=== PATIENT | female | born 1980 | race Caucasian/White ===

== ENCOUNTER 2019-05-30 15:36 | Emergency (ER) | payer SELFPAY ==
[2019-05-30] MEDS ORDERED: diphenhydrAMINE 25 MG CAP ONE (15:59)
[2019-05-30] MEDS ORDERED: Dexamethasone 4 mg/ml Vial ONE ×2 (15:59→16:04)
== END 2019-05-30 16:10 | disposition home or self-care (01) ==
LOC: ERS 15:36
DX: L25.3 Unspecified contact dermatitis due to other chemical products (principal)
CPT/HCPCS: 99282; J1100; Q0163

== ENCOUNTER 2022-08-18 08:17 | Outpatient (CLI) | payer BC | END 2022-08-18 08:18 | disposition home or self-care (01) | LOC: BICMAMMO 08:17 | PROVIDERS: ATTEND Family Medicine | DX: Z12.31 Encounter for screening mammogram for malignant neoplasm of breast (principal); N64.4 Mastodynia; R92.1 Mammographic calcification found on diagnostic imaging of breast; R92.8 Other abnormal and inconclusive findings on diagnostic imaging of breast; Z98.890 Other specified postprocedural states | CPT/HCPCS: 77066; G0279 ==

== ENCOUNTER 2023-09-21 17:13 | Emergency (ER) | payer BC | END 2023-09-21 20:46 | disposition left against medical advice (07) | LOC: ERS 17:13 | DX: Z53.21 Procedure and treatment not carried out due to patient leaving prior to being seen by health care provider (principal) ==

== ENCOUNTER 2023-11-18 07:41 | Outpatient (CLI) | payer BC | END 2023-11-18 07:42 | disposition home or self-care (01) | LOC: BICMAMMO 07:41 | PROVIDERS: ATTEND Family Medicine | DX: N64.4 Mastodynia (principal) | CPT/HCPCS: 77066; G0279 ==